=== PATIENT | female | born 1945 | race Two or more races ===

== ENCOUNTER → 2020-10-01 | Outpatient (CLI) | payer OTHER | END | disposition home or self-care (01) | LOC: OFIC 805 12:15 | PROVIDERS: ATTEND Otolaryngology | DX: H60.8X3 Other otitis externa, bilateral (principal); R42 Dizziness and giddiness; H61.23 Impacted cerumen, bilateral ==

== ENCOUNTER → 2020-10-13 | Outpatient (CLI) | payer OTHER | END | disposition home or self-care (01) | LOC: OFIC 805 12:00 | PROVIDERS: ATTEND Otolaryngology | DX: H90.3 Sensorineural hearing loss, bilateral (principal); R42 Dizziness and giddiness; H61.23 Impacted cerumen, bilateral ==